=== PATIENT | male | born 2000 | race Caucasian/White ===

== ENCOUNTER 2022-04-05 10:06 | Inpatient (IN) | payer MEDICAID ==
[~2022-04-05] VITALS: Ht 170.2 cm; Wt 55.3 kg
[2022-04-05] MEDS ORDERED: VANCOMYCIN 1G PREMIX 200 ML IV ONE (10:45)
[2022-04-05] MEDS ORDERED: PIPERACILLIN/TAZ 3.375G PREMIX 50 ML IV ONE (10:45)
[2022-04-05] MEDS ORDERED: SODIUM CHLORIDE 0.9% 1000ML BAG (SEPSIS BOLUS) IV ONE (10:45)
[2022-04-05 10:54] LABS: BASOPHILS % 0.1 % (0.0-2.0); HEMATOCRIT. 43.3 % (42.0-52.0); HEMOGLOBIN. 14.4 g/dL (14.0-18.0); LYMPHOCYTES % 9.7 % (20.0-50.0); MEAN CORPUSCULAR HEMOGLOBIN 29.3 pg (28.0-32.0); MEAN CORPUSCULAR VOLUME 88.3 fL (80.0-94.0); MEAN PLATELET VOLUME 9.6 fl (7.4-10.4); MONOCYTES % 8.4 % (2.0-8.0); NEUTROPHILS % 81.8 % (40.0-76.0); PLATELET 255 x1000/uL (130-400); RED CELL DISTRIBUTION WIDTH 13.8 % (11.6-14.6)
[2022-04-05 11:04] LABS: INR 1.4; PROTHROMBIN TIME 14.4 sec (9.6-11.0)
[2022-04-05 11:11] LABS: CHLORIDE 120 mEq/L (98-107)
[2022-04-05 12:18] LABS: CLARITY URINE CLEAR (CLEAR); COLOR URINE DARK YELLOW (YELLOW); KETONES URINE TRACE (NEGATIVE); LEUKOCYTE ESTERASE URINE NEGATIVE (NEGATIVE); NITRITE URINE NEGATIVE (NEGATIVE); OCCULT BLOOD URINE NEGATIVE (NEGATIVE); PROTEIN URINE 1+ (NEGATIVE); SPECIFIC GRAVITY URINE 1.023 (1.005-1.030); UROBILINOGEN URINE 0.2 E.U./dL (0.2-1.0)
[2022-04-05] MEDS ORDERED: KCL 20MEQ/100ML PREMIX 100 ML IV SCH (13:15)
[2022-04-05] MEDS ORDERED: MAGNESIUM/ALUMINUM HYDROXIDE/SIMETHICONE 30ML UDC PO PRN (15:15)
[2022-04-05] MEDS ORDERED: ACETAMINOPHEN 325MG TABLET PO PRN (15:15)
[2022-04-05] MEDS ORDERED: IPRATROPIUM/ALBUTEROL 0.5-3(2.5)MG/3ML NEB HHN PRN (15:15)
[2022-04-05] MEDS ORDERED: CLONIDINE 0.1MG TABLET PO PRN (15:15)
[2022-04-05] MEDS ORDERED: GUAIFENESIN 200MG/10ML SUGAR FREE UDC PO PRN (15:15)
[2022-04-05 15:16] LABS: BG BASE EXCESS -3.3 mmol/L (-2.0-2.0); BG CARBOXYHEMOGLOBIN 0.3 % (0.5-1.5); BG DEOXYHEMOGLOBIN 0.7 % (0.0-5.0); BG FRACTION INSPIRED OXYGEN 100; BG HCO3 ACT 18.4 mmol/L (22.0-26.0); BG METHEMOGLOBIN 0.4 % (0.0-1.5); BG OXYGEN SATURATION 99.3 % (92.0-98.5); BG OXYHEMOGLOBIN 98.6 % (94.0-97.0); BG PCO2 24.8 mmHg (35.0-45.0); BG PH 7.489 (7.350-7.450); BG PO2 317.5 mmHg (75.0-100.0); BG SAMPLE SITE RIGHT FEMORAL; BG TOTAL HEMOGLOBIN 12.7 g/dL (12.0-18.0); BG VENT MODE VENT - AC
[2022-04-05] MEDS ORDERED: DEXTROSE 5% WATER 1,000 ML IV ONE (16:00)
[2022-04-05] MEDS ORDERED: NOREPINEPHRINE 8 MG in DEXTROSE 5% WATER 250 ML IV PRN (16:15)
[2022-04-05] MEDS ORDERED: NOREPINEPHRINE 8MG/250ML PMX 250 ML IV PRN (16:15)
[2022-04-05] MEDS: KCL 20MEQ/100ML PREMIX 100 ML IV SCH ×2 (16:26→20:25)
[2022-04-05] MEDS ORDERED: PIPERACILLIN/TAZOBACTAM 3.375 G in DEXTROSE 5% WATER 50 ML IV SCH (18:00)
[2022-04-05] MEDS ORDERED: LORAZEPAM 2MG/ML CPJ IV ONE (19:15)
[2022-04-05 19:49] LABS: BG BASE EXCESS 0.5 mmol/L (-2.0-2.0); BG CARBOXYHEMOGLOBIN 0.3 % (0.5-1.5); BG DEOXYHEMOGLOBIN 2.3 % (0.0-5.0); BG FRACTION INSPIRED OXYGEN 40; BG HCO3 ACT 22.8 mmol/L (22.0-26.0); BG METHEMOGLOBIN 0.6 % (0.0-1.5); BG OXYGEN SATURATION 97.7 % (92.0-98.5); BG OXYHEMOGLOBIN 96.8 % (94.0-97.0); BG PCO2 29.6 mmHg (35.0-45.0); BG PH 7.504 (7.350-7.450); BG PO2 101.2 mmHg (75.0-100.0); BG SAMPLE SITE RIGHT FEMORAL; BG TOTAL HEMOGLOBIN 12.7 g/dL (12.0-18.0); BG VENT MODE COOL AEROSOL
[2022-04-05] MEDS ORDERED: PIPERACILLIN/TAZ 3.375G PREMIX 50 ML IV SCH (20:00)
[2022-04-05] MEDS: ENOXAPARIN 40MG/0.4ML SYR SUBCUT SCH (20:25)
[2022-04-05] MEDS ORDERED: POTASSIUM CHLORIDE 20MEQ/PACKET PEG NR (22:45)
[2022-04-05] MEDS: VANCOMYCIN 1G PREMIX 200 ML IV SCH (22:54)
[2022-04-06] VITALS (17 sets, daily range): BP systolic 109–164; BP diastolic 55–97
[2022-04-06 00:07] LABS: *AMPHETAMINES SCREEN URINE NEGATIVE (NEGATIVE); *BARBITURATES SCREEN URINE NEGATIVE (NEGATIVE); *BENZODIAZEPINES SCREEN URINE NEGATIVE (NEGATIVE); *COCAINE SCREEN URINE NEGATIVE (NEGATIVE); CANNABINOID URINE SCREEN NEGATIVE (NEGATIVE); METHADONE URINE SCREEN NEGATIVE (NEGATIVE); OPIATES URINE SCREEN NEGATIVE (NEGATIVE); PHENCYCLIDINE URINE SCREEN NEGATIVE (NEGATIVE)
[2022-04-06] MEDS: VANCOMYCIN 1G PREMIX 200 ML IV SCH (05:38)
[2022-04-06] MEDS: DEXT 5%/0.45% NACL 1000ML 1,000 ML IV SCH ×3 (05:54→20:58)
[2022-04-06] MEDS ORDERED: PANT40TA51 PO (06:12)
[2022-04-06] MEDS ORDERED: PROP10TA10 PO (06:12)
[2022-04-06] MEDS ORDERED: VALP250S4 GT (06:12)
[2022-04-06] MEDS ORDERED: BACL-141 PO (06:12)
[2022-04-06] MEDS ORDERED: LEVE500V GT (06:12)
[2022-04-06] MEDS: PIPERACILLIN/TAZOBACTAM 3.375 G in DEXTROSE 5% WATER 50 ML IV SCH ×3 (06:38→20:58)
[2022-04-06 06:54] LABS: BASOPHILS % 0.1 % (0.0-2.0); EOSINOPHILS % 0.1 % (0.0-5.0); HEMATOCRIT. 35.3 % (42.0-52.0); HEMOGLOBIN. 11.6 g/dL (14.0-18.0); LYMPHOCYTES % 15.8 % (20.0-50.0); MEAN CORPUSCULAR HEMOGLOBIN 29.6 pg (28.0-32.0); MEAN CORPUSCULAR VOLUME 89.7 fL (80.0-94.0); MEAN PLATELET VOLUME 10.5 fl (7.4-10.4); MONOCYTES % 5.2 % (2.0-8.0); NEUTROPHILS % 78.8 % (40.0-76.0); PLATELET 137 x1000/uL (130-400); RED BLOOD CELL COUNT 3.93 mill/uL (4.7-6.1); RED CELL DISTRIBUTION WIDTH 13.4 % (11.6-14.6)
[2022-04-06 07:10] LABS: CHLORIDE 117 mEq/L (98-107)
[2022-04-06 07:24] LABS: CREATINE KINASE 353 IU/L (39-308)
[2022-04-06 07:27] LABS: PHOSPHORUS 1.8 mg/dL (2.5-4.9); T4 FREE 1.09 ng/dL (0.76-1.46)
[2022-04-06 08:06] LABS: HDL CHOLESTEROL 16 mg/dL (40-59); LDL CHOLESTEROL 31 mg/dL (5-100)
[2022-04-06] MEDS ORDERED: KCL 20MEQ/100ML PREMIX 100 ML IV SCH (09:00)
[2022-04-06] MEDS: PANTOPRAZOLE SODIUM 40 MG/VIAL IV SCH (09:20)
[2022-04-06] MEDS ORDERED: POTASSIUM CHLORIDE 20MEQ/PACKET GT SCH (09:45)
[2022-04-06 10:02] LABS: BG BASE EXCESS 3.3 mmol/L (-2.0-2.0); BG CARBOXYHEMOGLOBIN 0.3 % (0.5-1.5); BG FRACTION INSPIRED OXYGEN 40; BG HCO3 ACT 24.6 mmol/L (22.0-26.0); BG METHEMOGLOBIN 0.3 % (0.0-1.5); BG OXYHEMOGLOBIN 96.4 % (94.0-97.0); BG PCO2 27.5 mmHg (35.0-45.0); BG SAMPLE SITE RIGHT RADIAL; BG TOTAL HEMOGLOBIN 11.4 g/dL (12.0-18.0); BG VENT MODE COOL AEROSOL
[2022-04-06] MEDS ORDERED: POTASSIUM PHOS,M-BASIC-D-BASIC 15 MMOL in DEXT 5% WATER 245 ML IV SCH (11:00)
[2022-04-06] MEDS: LEVETIRACETAM 500MG PREMIX 100 ML IV SCH ×2 (11:25→20:57)
[2022-04-06] MEDS: BACLOFEN 10MG TABLET PO SCH ×2 (13:00→17:00)
[2022-04-06] MEDS: PROPRANOLOL HCL 10MG TABLET PO SCH ×2 (15:30→21:01)
[2022-04-06] MEDS ORDERED: LEVETIRACETAM IV SCH (17:00)
[2022-04-06] MEDS: ENOXAPARIN 40MG/0.4ML SYR SUBCUT SCH (18:16)
[2022-04-06] MEDS: VANCOMYCIN 750MG PREMIX 150 ML IV SCH (20:58)
[2022-04-07] VITALS: BP 100/56
[2022-04-07 04:00] VITALS: BP 102/59
[2022-04-07] MEDS: PIPERACILLIN/TAZOBACTAM 3.375 G in DEXTROSE 5% WATER 50 ML IV SCH ×3 (05:26→21:39)
[2022-04-07] MEDS: VANCOMYCIN 750MG PREMIX 150 ML IV SCH ×2 (05:29→17:45)
[2022-04-07] MEDS: DEXT 5%/0.45% NACL 1000ML 1,000 ML IV SCH ×2 (05:30→13:55)
[2022-04-07] MEDS: PROPRANOLOL HCL 10MG TABLET PO SCH ×3 (05:34→21:40)
[2022-04-07 05:45] LABS: BASOPHILS % 0.2 % (0.0-2.0); EOSINOPHILS % 2.1 % (0.0-5.0); HEMATOCRIT. 32.3 % (42.0-52.0); HEMOGLOBIN. 10.5 g/dL (14.0-18.0); LYMPHOCYTES % 19.6 % (20.0-50.0); MEAN CORPUSCULAR VOLUME 89.5 fL (80.0-94.0); MEAN PLATELET VOLUME 11.5 fl (7.4-10.4); MONOCYTES % 7.3 % (2.0-8.0); NEUTROPHILS % 70.8 % (40.0-76.0); PLATELET 113 x1000/uL (130-400); RED BLOOD CELL COUNT 3.61 mill/uL (4.7-6.1); RED CELL DISTRIBUTION WIDTH 13.5 % (11.6-14.6)
[2022-04-07 07:11] LABS: CHLORIDE 113 mEq/L (98-107)
[2022-04-07 07:22] LABS: CREATINE KINASE 223 IU/L (39-308); CREATINE KINASE MB FRACTION 2.1 ng/mL (0.5-3.6); VANCOMYCIN TROUGH 23.2 ug/mL (5.0-10.0)
[2022-04-07 08:00] VITALS: BP 119/68
[2022-04-07] MEDS: BACLOFEN 10MG TABLET PO SCH ×3 (09:40→17:44)
[2022-04-07] MEDS: PANTOPRAZOLE SODIUM 40 MG/VIAL IV SCH (09:40)
[2022-04-07] MEDS: LEVETIRACETAM 500MG PREMIX 100 ML IV SCH ×2 (09:41→21:38)
[2022-04-07] MEDS: KCL 20MEQ/100ML PREMIX 100 ML IV SCH ×2 (09:41→13:19)
[2022-04-07] MEDS ORDERED: IPRATROPIUM/ALBUTEROL 0.5-3(2.5)MG/3ML NEB HHN PRN (10:30)
[2022-04-07 12:00] VITALS: BP 115/57
[2022-04-07 16:00] VITALS: BP 125/63
[2022-04-07 20:00] VITALS: BP 140/77
[2022-04-08] VITALS: BP 139/73
[2022-04-08] MEDS: DEXT 5%/0.45% NACL 1000ML 1,000 ML IV SCH ×2 (00:37→06:30)
[2022-04-08 04:00] VITALS: BP 143/87
[2022-04-08 04:54] LABS: BASOPHILS % 0.8 % (0.0-2.0); EOSINOPHILS % 2.3 % (0.0-5.0); HEMATOCRIT. 27.3 % (42.0-52.0); HEMOGLOBIN. 8.7 g/dL (14.0-18.0); LYMPHOCYTES % 20.5 % (20.0-50.0); MEAN CORPUSCULAR HEMOGLOBIN 28.4 pg (28.0-32.0); MEAN CORPUSCULAR VOLUME 88.6 fL (80.0-94.0); MEAN PLATELET VOLUME 12.4 fl (7.4-10.4); MONOCYTES % 6.7 % (2.0-8.0); NEUTROPHILS % 69.7 % (40.0-76.0); PLATELET 92 x1000/uL (130-400); RED BLOOD CELL COUNT 3.08 mill/uL (4.7-6.1); RED CELL DISTRIBUTION WIDTH 13.7 % (11.6-14.6)
[2022-04-08 05:07] LABS: PHOSPHORUS 3.5 mg/dL (2.5-4.9)
[2022-04-08 05:10] LABS: CHLORIDE 115 mEq/L (98-107)
[2022-04-08] MEDS: PIPERACILLIN/TAZOBACTAM 3.375 G in DEXTROSE 5% WATER 50 ML IV SCH ×3 (06:29→21:53)
[2022-04-08] MEDS: PROPRANOLOL HCL 10MG TABLET PO SCH ×3 (06:30→21:54)
[2022-04-08] MEDS: VANCOMYCIN 750MG PREMIX 150 ML IV SCH ×2 (06:37→17:16)
[2022-04-08] MEDS ORDERED: DEXT 5% WATER + KCL 40MEQ/L 1,000 ML IV ONE (07:45)
[2022-04-08] MEDS: SODIUM CHLORIDE 0.45% 1,000 ML IV SCH ×2 (08:00→21:52)
[2022-04-08 08:42] VITALS: BP 135/69
[2022-04-08] MEDS: IPRATROPIUM BROMIDE (0.02%) 0.5MG/2.5ML NEB HHN PRN (08:48)
[2022-04-08] MEDS: ALBUTEROL (0.083%) 2.5MG/3ML NEB HHN PRN (08:49)
[2022-04-08] MEDS: LEVETIRACETAM 500MG PREMIX 100 ML IV SCH ×2 (09:43→21:52)
[2022-04-08] MEDS: KCL 20MEQ/100ML X 2 FOR TOTAL KCL 40MEQ/200ML IV SCH ×2 (09:43→12:35)
[2022-04-08] MEDS: PANTOPRAZOLE SODIUM 40 MG/VIAL IV SCH (09:43)
[2022-04-08] MEDS: BACLOFEN 10MG TABLET PO SCH ×3 (09:44→17:15)
[2022-04-08] MEDS: ACETAMINOPHEN 325MG TABLET PO PRN (09:47)
[2022-04-08 12:00] VITALS: BP 130/67
[2022-04-08 16:00] VITALS: BP 136/77
[2022-04-08 20:00] VITALS: BP 145/76
[2022-04-09] VITALS (7 sets, daily range): BP systolic 117–138; BP diastolic 55–76
[2022-04-09] MEDS: PIPERACILLIN/TAZOBACTAM 3.375 G in DEXTROSE 5% WATER 50 ML IV SCH ×3 (05:32→21:52)
[2022-04-09] MEDS: VANCOMYCIN 750MG PREMIX 150 ML IV SCH (05:32)
[2022-04-09] MEDS: PROPRANOLOL HCL 10MG TABLET PO SCH ×3 (05:33→21:56)
[2022-04-09 08:14] LABS: CHLORIDE 117 mEq/L (98-107)
[2022-04-09] MEDS: PANTOPRAZOLE SODIUM 40 MG/VIAL IV SCH (10:52)
[2022-04-09] MEDS: LEVETIRACETAM 500MG PREMIX 100 ML IV SCH ×2 (10:52→21:53)
[2022-04-09] MEDS: BACLOFEN 10MG TABLET PO SCH ×3 (10:56→18:11)
[2022-04-09] MEDS: SODIUM CHLORIDE 0.45% 1,000 ML IV SCH ×2 (10:57→21:53)
[2022-04-09] MEDS ORDERED: IOHEXOL-350 100 ML BOTTLE ONE (15:48)
[2022-04-10] VITALS (8 sets, daily range): BP systolic 113–145; BP diastolic 52–75
[2022-04-10] MEDS: PIPERACILLIN/TAZOBACTAM 3.375 G in DEXTROSE 5% WATER 50 ML IV SCH ×2 (06:51→13:17)
[2022-04-10] MEDS: SODIUM CHLORIDE 0.45% 1,000 ML IV SCH ×3 (06:52→21:39)
[2022-04-10] MEDS: PROPRANOLOL HCL 10MG TABLET PO SCH ×3 (06:52→21:50)
[2022-04-10] MEDS: LEVETIRACETAM 500MG PREMIX 100 ML IV SCH ×2 (10:28→21:48)
[2022-04-10] MEDS: BACLOFEN 10MG TABLET PO SCH ×3 (10:28→16:44)
[2022-04-10] MEDS: PANTOPRAZOLE SODIUM 40 MG/VIAL IV SCH (10:28)
[2022-04-10 11:26] LABS: BASOPHILS % 0.1 % (0.0-2.0); EOSINOPHILS % 1.8 % (0.0-5.0); HEMOGLOBIN. 11.3 g/dL (14.0-18.0); LYMPHOCYTES % 9.2 % (20.0-50.0); MEAN CORPUSCULAR HEMOGLOBIN 28.8 pg (28.0-32.0); MEAN CORPUSCULAR VOLUME 89.4 fL (80.0-94.0); MEAN PLATELET VOLUME 11.1 fl (7.4-10.4); MONOCYTES % 9.2 % (2.0-8.0); NEUTROPHILS % 79.7 % (40.0-76.0); PLATELET 257 x1000/uL (130-400); RED BLOOD CELL COUNT 3.91 mill/uL (4.7-6.1); RED CELL DISTRIBUTION WIDTH 13.6 % (11.6-14.6)
[2022-04-10 11:34] LABS: CHLORIDE 115 mEq/L (98-107)
[2022-04-10] MEDS ORDERED: VANCOMYCIN 750MG PREMIX 150 ML IV SCH (14:00)
[2022-04-11] VITALS (9 sets, daily range): BP systolic 119–159; BP diastolic 55–92
[2022-04-11 05:42] LABS: CHLORIDE 112 mEq/L (98-107)
[2022-04-11 05:48] LABS: PHOSPHORUS 4.7 mg/dL (2.5-4.9)
[2022-04-11] MEDS: PROPRANOLOL HCL 10MG TABLET PO SCH ×3 (06:00→22:04)
[2022-04-11] MEDS: SODIUM CHLORIDE 0.45% 1,000 ML IV SCH ×2 (06:05→15:50)
[2022-04-11 06:42] LABS: BASOPHILS % 0.1 % (0.0-2.0); HEMATOCRIT. 29.2 % (42.0-52.0); HEMOGLOBIN. 9.8 g/dL (14.0-18.0); LYMPHOCYTES % 11.7 % (20.0-50.0); MEAN CORPUSCULAR VOLUME 86.7 fL (80.0-94.0); MEAN PLATELET VOLUME 12.4 fl (7.4-10.4); MONOCYTES % 12.3 % (2.0-8.0); NEUTROPHILS % 72.9 % (40.0-76.0); PLATELET 275 x1000/uL (130-400); RED BLOOD CELL COUNT 3.37 mill/uL (4.7-6.1); RED CELL DISTRIBUTION WIDTH 13.1 % (11.6-14.6)
[2022-04-11] MEDS: IPRATROPIUM BROMIDE (0.02%) 0.5MG/2.5ML NEB HHN PRN (11:57)
[2022-04-11] MEDS: TOBRAMYCIN SULFATE 80MG/2ML 30ML INH SCH ×2 (11:57→21:56)
[2022-04-11] MEDS: ALBUTEROL (0.083%) 2.5MG/3ML NEB HHN PRN (11:57)
[2022-04-11] MEDS ORDERED: LEVETIRACETAM 500MG in SODIUM CHLORIDE 0.9% 100ML IV NR (14:00)
[2022-04-11] MEDS: PANTOPRAZOLE SODIUM 40 MG/VIAL IV SCH (15:00)
[2022-04-11] MEDS: BACLOFEN 10MG TABLET PO SCH ×3 (15:00→19:27)
[2022-04-11] MEDS: ENOXAPARIN 40MG/0.4ML SYR SUBCUT SCH (19:27)
[2022-04-11] MEDS: LEVETIRACETAM 500MG PREMIX 100 ML IV SCH ×2 (22:04→22:05)
[2022-04-12] VITALS (9 sets, daily range): BP systolic 97–128; BP diastolic 57–78
[2022-04-12] MEDS: SODIUM CHLORIDE 0.45% 1,000 ML IV SCH (05:09)
[2022-04-12] MEDS: PROPRANOLOL HCL 10MG TABLET PO SCH ×3 (06:24→21:58)
[2022-04-12 06:52] LABS: BASOPHILS % 0.2 % (0.0-2.0); EOSINOPHILS % 2.8 % (0.0-5.0); HEMATOCRIT. 29.2 % (42.0-52.0); LYMPHOCYTES % 17.4 % (20.0-50.0); MEAN CORPUSCULAR HEMOGLOBIN 29.5 pg (28.0-32.0); MEAN CORPUSCULAR VOLUME 86.4 fL (80.0-94.0); MONOCYTES % 13.9 % (2.0-8.0); NEUTROPHILS % 65.7 % (40.0-76.0); PLATELET 336 x1000/uL (130-400); RED BLOOD CELL COUNT 3.38 mill/uL (4.7-6.1); RED CELL DISTRIBUTION WIDTH 13.1 % (11.6-14.6)
[2022-04-12 08:14] LABS: CHLORIDE 112 mEq/L (98-107)
[2022-04-12] MEDS: TOBRAMYCIN SULFATE 80MG/2ML 30ML INH SCH (09:25)
[2022-04-12] MEDS: LEVETIRACETAM 500MG PREMIX 100 ML IV SCH ×2 (09:39→21:57)
[2022-04-12] MEDS: PANTOPRAZOLE SODIUM 40 MG/VIAL IV SCH (09:39)
[2022-04-12] MEDS: BACLOFEN 10MG TABLET PO SCH ×3 (09:40→17:45)
[2022-04-12] MEDS ORDERED: TOBR40VI2 INH (14:43)
[2022-04-12] MEDS: ENOXAPARIN 40MG/0.4ML SYR SUBCUT SCH (17:46)
[2022-04-12] MEDS: ACETAMINOPHEN 325MG TABLET PO PRN (17:56)
[2022-04-12] MEDS ORDERED: IPRATROPIUM/ALBUTEROL 0.5-3(2.5)MG/3ML NEB HHN PRN (20:30)
[2022-04-12] MEDS ORDERED: ALBUTEROL (0.083%) 2.5MG/3ML NEB HHN PRN (20:45)
[2022-04-12] MEDS ORDERED: IPRATROPIUM BROMIDE (0.02%) 0.5MG/2.5ML NEB HHN PRN (20:45)
[2022-04-13] VITALS: BP 125/77
[2022-04-13] MEDS ORDERED: IPRATROPIUM/ALBUTEROL 0.5-3(2.5)MG/3ML NEB HHN SCH
[2022-04-13] MEDS: IPRATROPIUM BROMIDE (0.02%) 0.5MG/2.5ML NEB HHN SCH ×4 (02:31→21:26)
[2022-04-13] MEDS: ALBUTEROL (0.083%) 2.5MG/3ML NEB HHN SCH ×4 (02:31→21:26)
[2022-04-13 04:00] VITALS: BP 124/77
[2022-04-13 06:33] LABS: HEMATOCRIT 32.2 % (42.0-52.0); HEMOGLOBIN 10.6 g/dL (14.0-18.0); MEAN CORPUSCULAR HEMOGLOBIN 29.1 pg (28.0-32.0); MEAN CORPUSCULAR VOLUME 88.5 fL (80.0-94.0); PLATELET 444 x1000/uL (130-400); RED BLOOD CELL COUNT 3.64 mill/uL (4.7-6.1); RED CELL DISTRIBUTION WIDTH 13.2 % (11.6-14.6)
[2022-04-13] MEDS: PROPRANOLOL HCL 10MG TABLET PO SCH ×3 (06:38→22:20)
[2022-04-13] MEDS: TOBRAMYCIN SULFATE 80MG/2ML 30ML INH SCH (07:51)
[2022-04-13 07:55] LABS: CHLORIDE 108 mEq/L (98-107)
[2022-04-13 08:00] VITALS: BP 131/68
[2022-04-13 08:07] LABS: PHOSPHORUS 4.3 mg/dL (2.5-4.9)
[2022-04-13] MEDS: LEVETIRACETAM 500MG PREMIX 100 ML IV SCH ×2 (08:28→22:19)
[2022-04-13] MEDS: PANTOPRAZOLE SODIUM 40 MG/VIAL IV SCH (08:29)
[2022-04-13] MEDS: BACLOFEN 10MG TABLET PO SCH ×3 (08:29→17:04)
[2022-04-13 12:00] VITALS: BP 125/70
[2022-04-13 16:00] VITALS: BP 138/74
[2022-04-13] MEDS: ENOXAPARIN 40MG/0.4ML SYR SUBCUT SCH (17:05)
[2022-04-13 20:00] VITALS: BP 125/83
[2022-04-14] VITALS: BP 125/80
[2022-04-14] MEDS: ALBUTEROL (0.083%) 2.5MG/3ML NEB HHN SCH ×4 (01:50→21:13)
[2022-04-14] MEDS: IPRATROPIUM BROMIDE (0.02%) 0.5MG/2.5ML NEB HHN SCH ×4 (01:50→21:12)
[2022-04-14] MEDS: TOBRAMYCIN SULFATE 80MG/2ML 30ML INH SCH ×2 (01:50→21:38)
[2022-04-14 04:00] VITALS: BP 123/90
[2022-04-14 05:59] LABS: HEMATOCRIT 29.6 % (42.0-52.0); MEAN CORPUSCULAR HEMOGLOBIN 28.6 pg (28.0-32.0); MEAN CORPUSCULAR VOLUME 84.8 fL (80.0-94.0); PLATELET 460 x1000/uL (130-400); RED BLOOD CELL COUNT 3.49 mill/uL (4.7-6.1); RED CELL DISTRIBUTION WIDTH 13.3 % (11.6-14.6)
[2022-04-14] MEDS: PROPRANOLOL HCL 10MG TABLET PO SCH ×3 (05:59→21:41)
[2022-04-14 07:53] LABS: CHLORIDE 107 mEq/L (98-107)
[2022-04-14 08:00] VITALS: BP 131/84
[2022-04-14] MEDS: BACLOFEN 10MG TABLET PO SCH ×3 (09:34→19:54)
[2022-04-14] MEDS: PANTOPRAZOLE SODIUM 40 MG/VIAL IV SCH (09:34)
[2022-04-14] MEDS: LEVETIRACETAM 500MG PREMIX 100 ML IV SCH ×2 (09:34→21:41)
[2022-04-14 12:00] VITALS: BP 130/85
[2022-04-14] MEDS: DOCUSATE SODIUM 100MG CAPSULE PO PRN (14:03)
[2022-04-14 16:00] VITALS: BP 125/62
[2022-04-14] MEDS: ENOXAPARIN 40MG/0.4ML SYR SUBCUT SCH (19:52)
[2022-04-15] VITALS (10 sets, daily range): BP systolic 110–129; BP diastolic 66–89
[2022-04-15] MEDS: ALBUTEROL (0.083%) 2.5MG/3ML NEB HHN SCH ×4 (03:00→21:19)
[2022-04-15] MEDS: IPRATROPIUM BROMIDE (0.02%) 0.5MG/2.5ML NEB HHN SCH ×4 (03:00→21:19)
[2022-04-15] MEDS: PROPRANOLOL HCL 10MG TABLET PO SCH ×3 (07:24→20:56)
[2022-04-15 07:59] LABS: HEMATOCRIT 29.5 % (42.0-52.0); PLATELET 533 x1000/uL (130-400); RED BLOOD CELL COUNT 3.47 mill/uL (4.7-6.1); RED CELL DISTRIBUTION WIDTH 13.2 % (11.6-14.6)
[2022-04-15 08:56] LABS: CHLORIDE 106 mEq/L (98-107)
[2022-04-15] MEDS: LEVETIRACETAM 500MG PREMIX 100 ML IV SCH ×2 (11:08→20:55)
[2022-04-15] MEDS: PANTOPRAZOLE SODIUM 40 MG/VIAL IV SCH (11:08)
[2022-04-15] MEDS: BACLOFEN 10MG TABLET PO SCH ×3 (11:08→18:39)
[2022-04-15] MEDS: TOBRAMYCIN SULFATE 80MG/2ML 30ML INH SCH (13:44)
[2022-04-15] MEDS: ENOXAPARIN 40MG/0.4ML SYR SUBCUT SCH (18:39)
[2022-04-16] VITALS (7 sets, daily range): BP systolic 114–132; BP diastolic 69–89
[2022-04-16] MEDS: ALBUTEROL (0.083%) 2.5MG/3ML NEB HHN SCH ×4 (01:16→20:28)
[2022-04-16] MEDS: IPRATROPIUM BROMIDE (0.02%) 0.5MG/2.5ML NEB HHN SCH ×4 (01:16→20:28)
[2022-04-16] MEDS: PROPRANOLOL HCL 10MG TABLET PO SCH ×3 (05:00→20:42)
[2022-04-16 07:09] LABS: HEMATOCRIT 30.7 % (42.0-52.0); HEMOGLOBIN 10.4 g/dL (14.0-18.0); MEAN CORPUSCULAR HEMOGLOBIN 28.5 pg (28.0-32.0); MEAN CORPUSCULAR VOLUME 83.9 fL (80.0-94.0); PLATELET 568 x1000/uL (130-400); RED BLOOD CELL COUNT 3.67 mill/uL (4.7-6.1); RED CELL DISTRIBUTION WIDTH 13.5 % (11.6-14.6)
[2022-04-16 08:22] LABS: CHLORIDE 106 mEq/L (98-107)
[2022-04-16] MEDS: LEVETIRACETAM 500MG PREMIX 100 ML IV SCH ×2 (10:34→20:44)
[2022-04-16] MEDS: PANTOPRAZOLE SODIUM 40 MG/VIAL IV SCH (10:34)
[2022-04-16] MEDS: BACLOFEN 10MG TABLET PO SCH ×3 (10:34→17:47)
[2022-04-16] MEDS: ENOXAPARIN 40MG/0.4ML SYR SUBCUT SCH (17:47)
[2022-04-17] VITALS (7 sets, daily range): BP systolic 116–150; BP diastolic 70–116
[2022-04-17] MEDS: ALBUTEROL (0.083%) 2.5MG/3ML NEB HHN SCH ×4 (01:13→20:31)
[2022-04-17] MEDS: IPRATROPIUM BROMIDE (0.02%) 0.5MG/2.5ML NEB HHN SCH ×4 (01:14→20:31)
[2022-04-17] MEDS: PROPRANOLOL HCL 10MG TABLET PO SCH ×3 (05:51→21:09)
[2022-04-17] MEDS: PANTOPRAZOLE SODIUM 40 MG/VIAL IV SCH (10:01)
[2022-04-17] MEDS: LEVETIRACETAM 500MG PREMIX 100 ML IV SCH ×2 (10:02→21:06)
[2022-04-17] MEDS: BACLOFEN 10MG TABLET PO SCH ×3 (10:02→17:38)
[2022-04-17] MEDS: ENOXAPARIN 40MG/0.4ML SYR SUBCUT SCH (17:37)
[2022-04-18] VITALS: BP 121/47
[2022-04-18] MEDS: ALBUTEROL (0.083%) 2.5MG/3ML NEB HHN SCH (01:47)
[2022-04-18] MEDS: IPRATROPIUM BROMIDE (0.02%) 0.5MG/2.5ML NEB HHN SCH (01:47)
[2022-04-18] MEDS: PROPRANOLOL HCL 10MG TABLET PO SCH ×3 (07:05→21:32)
[2022-04-18 07:19] LABS: HEMOGLOBIN 9.5 g/dL (14.0-18.0); MEAN CORPUSCULAR HEMOGLOBIN 28.7 pg (28.0-32.0); PLATELET 548 x1000/uL (130-400); RED BLOOD CELL COUNT 3.33 mill/uL (4.7-6.1); RED CELL DISTRIBUTION WIDTH 13.4 % (11.6-14.6)
[2022-04-18 08:00] VITALS: BP 127/82
[2022-04-18 08:03] LABS: CHLORIDE 108 mEq/L (98-107)
[2022-04-18] MEDS: BACLOFEN 10MG TABLET PO SCH ×3 (09:34→17:44)
[2022-04-18] MEDS: LEVETIRACETAM 500MG PREMIX 100 ML IV SCH ×2 (09:41→21:31)
[2022-04-18] MEDS: PANTOPRAZOLE SODIUM 40 MG/VIAL IV SCH (09:42)
[2022-04-18 12:00] VITALS: BP 120/84
[2022-04-18 16:00] VITALS: BP 132/79
[2022-04-18] MEDS: DOCUSATE SODIUM 100MG CAPSULE PO PRN (16:01)
[2022-04-18] MEDS: ACETAMINOPHEN 325MG TABLET PO PRN ×4 (16:01→19:03)
[2022-04-18] MEDS ORDERED: NA PHOS,M-B/NA PHOS,DI-BA ENEMA 118ML PR NR (16:30)
[2022-04-18] MEDS: ENOXAPARIN 40MG/0.4ML SYR SUBCUT SCH (18:57)
[2022-04-18 20:00] VITALS: BP 128/75
[2022-04-19] VITALS (7 sets, daily range): BP systolic 115–142; BP diastolic 66–85
[2022-04-19] MEDS: PROPRANOLOL HCL 10MG TABLET PO SCH ×3 (06:02→22:00)
[2022-04-19 06:18] LABS: BASOPHILS % 0.2 % (0.0-2.0); EOSINOPHILS % 0.6 % (0.0-5.0); HEMATOCRIT. 27.8 % (42.0-52.0); HEMOGLOBIN. 9.5 g/dL (14.0-18.0); LYMPHOCYTES % 21.2 % (20.0-50.0); MEAN CORPUSCULAR HEMOGLOBIN 28.7 pg (28.0-32.0); MEAN CORPUSCULAR VOLUME 84.3 fL (80.0-94.0); MEAN PLATELET VOLUME 10.2 fl (7.4-10.4); PLATELET 475 x1000/uL (130-400); RED CELL DISTRIBUTION WIDTH 13.2 % (11.6-14.6)
[2022-04-19 09:35] LABS: CHLORIDE 106 mEq/L (98-107)
[2022-04-19] MEDS: LEVETIRACETAM 500MG PREMIX 100 ML IV SCH (10:33)
[2022-04-19] MEDS: PANTOPRAZOLE SODIUM 40 MG/VIAL IV SCH (10:34)
[2022-04-19] MEDS: BACLOFEN 10MG TABLET PO SCH ×3 (10:34→17:22)
[2022-04-19] MEDS ORDERED: POTASSIUM CHLORIDE 20MEQ TABLET SR PO SCH (11:00)
[2022-04-19] MEDS ORDERED: POTASSIUM CHLORIDE 20MEQ/PACKET PO NR (11:30)
[2022-04-19] MEDS ORDERED: IPRATROPIUM/ALBUTEROL 0.5-3(2.5)MG/3ML NEB HHN PRN (13:00)
[2022-04-19] MEDS ORDERED: IPRATROPIUM BROMIDE (0.02%) 0.5MG/2.5ML NEB HHN PRN (13:15)
[2022-04-19] MEDS ORDERED: ALBUTEROL (0.083%) 2.5MG/3ML NEB HHN PRN (13:15)
[2022-04-19] MEDS: ENOXAPARIN 40MG/0.4ML SYR SUBCUT SCH (17:22)
[2022-04-19] MEDS ORDERED: IPRATROPIUM/ALBUTEROL 0.5-3(2.5)MG/3ML NEB HHN SCH (18:00)
[2022-04-19] MEDS: ALBUTEROL (0.083%) 2.5MG/3ML NEB HHN SCH (20:15)
[2022-04-19] MEDS: IPRATROPIUM BROMIDE (0.02%) 0.5MG/2.5ML NEB HHN SCH (20:15)
[2022-04-19] MEDS: LEVETIRACETAM 500MG/5ML CUP PO SCH (22:25)
[2022-04-20] VITALS: BP 120/83
[2022-04-20] MEDS: ALBUTEROL (0.083%) 2.5MG/3ML NEB HHN SCH ×3 (01:56→15:47)
[2022-04-20] MEDS: IPRATROPIUM BROMIDE (0.02%) 0.5MG/2.5ML NEB HHN SCH ×3 (01:57→15:46)
[2022-04-20 04:00] VITALS: BP 130/81
[2022-04-20] MEDS: PROPRANOLOL HCL 10MG TABLET PO SCH ×2 (06:00→13:10)
[2022-04-20 08:00] VITALS: BP 124/76
[2022-04-20] MEDS: BACLOFEN 10MG TABLET PO SCH ×3 (09:22→17:36)
[2022-04-20] MEDS: LEVETIRACETAM 500MG/5ML CUP PO SCH (09:22)
[2022-04-20] MEDS: PANTOPRAZOLE SODIUM 40 MG/VIAL IV SCH (09:22)
[2022-04-20] MEDS ORDERED: POTASSIUM CHLORIDE 20MEQ/PACKET PEG NR (10:45)
[2022-04-20 12:00] VITALS: BP 118/71
[2022-04-20] MEDS: ENOXAPARIN 40MG/0.4ML SYR SUBCUT SCH (13:10)
[2022-04-20 16:00] VITALS: BP 121/80
[2022-04-20 18:07] VITALS: BP 131/88
== END 2022-04-20 18:35 | DRG 720 ==
LOC: ER 10:11 → EDBEDREQ 10:53 → MICUSO 13:07 → EDBEDREQ 13:13 → EDBEDREQSVC 13:13 → 5EST 04-06 04:36
PROVIDERS: ADMIT Internal Medicine; ATTEND Internal Medicine
PROC: 5A1935Z Respiratory Ventilation, Less than 24 Consecutive Hours (ICD-10-PCS; principal; 2022-04-05)
DX: A41.9 Sepsis, unspecified organism (principal); N17.0 Acute kidney failure with tubular necrosis; J96.21 Acute and chronic respiratory failure with hypoxia; G82.50 Quadriplegia, unspecified; G93.40 Encephalopathy, unspecified; J15.1 Pneumonia due to Pseudomonas; E44.1 Mild protein-calorie malnutrition; D69.6 Thrombocytopenia, unspecified; I21.A1 Myocardial infarction type 2; E87.0 Hyperosmolality and hypernatremia; E86.1 Hypovolemia; E87.6 Hypokalemia; N39.0 Urinary tract infection, site not specified; R13.10 Dysphagia, unspecified; Z20.822 Contact with and (suspected) exposure to COVID-19; R65.20 Severe sepsis without septic shock; E86.0 Dehydration; B96.5 Pseudomonas (aeruginosa) (mallei) (pseudomallei) as the cause of diseases classified elsewhere; I10 Essential (primary) hypertension; E87.4 Mixed disorder of acid-base balance; D75.839 Thrombocytosis, unspecified; I95.9 Hypotension, unspecified; K21.9 Gastro-esophageal reflux disease without esophagitis; E83.39 Other disorders of phosphorus metabolism; E83.41 Hypermagnesemia; E87.1 Hypo-osmolality and hyponatremia; Z16.24 Resistance to multiple antibiotics; Z79.899 Other long term (current) drug therapy; Z68.1 Body mass index [BMI] 19.9 or less, adult; Z93.1 Gastrostomy status; Z93.0 Tracheostomy status; Z87.440 Personal history of urinary (tract) infections; Z98.2 Presence of cerebrospinal fluid drainage device
CPT/HCPCS: 36415; 36600; 71045; 71275; 80048; 80053; 80061; 80165; 80202; 80305; 81003; 82375; 82542; 82550; 82553; 82805; 82962; 83036; 83605; 83735; 83880; 84100; 84132; 84134; 84145; 84439; 84443; 84484; 85025; 85027; 85379; 86022; 87070; 87077; 87186; 87426; 93005; 93306; 93970; 94002; 94640; 99291; A6261; C9113; C9803; J1650; J1953; J2060; J2543; J3260; J3370; J3480; J3490; J7030; J7050; J7060; Q9967; A4315